=== PATIENT | male | born 1945 | race Caucasian/White ===

== ENCOUNTER 2022-02-09 11:47 | Outpatient (CLI) | payer MEDICARE ==
[2022-02-09] VITALS (7 sets, daily range): BP systolic 130–141; BP diastolic 86–105; PULSE 71–93; TEMP 96.9
[~2022-02-09] VITALS: Ht 185.4 cm; Wt 96.0 kg
[2022-02-09] MEDS ORDERED: LIPITOR 40MG TA40 MG PO (11:49)
[2022-02-09] MEDS ORDERED: ASPIRIN E.C. 8181 MG PO (11:49)
[2022-02-09] MEDS ORDERED: ZYLOPRIM 300MG300 MG PO (11:49)
[2022-02-09] MEDS ORDERED: DULCOLAX S10 MG/SUPP RC (11:50)
[2022-02-09] MEDS ORDERED: SINEMET 25/101 UDTAB PO (11:54)
[2022-02-09] MEDS ORDERED: DECADRON6 MG PO (11:55)
[2022-02-09] MEDS ORDERED: REFRESH TEARS 330 ML OP (11:55)
[2022-02-09] MEDS ORDERED: CELEXA 20MG20 MG/TAB PO (11:55)
[2022-02-09] MEDS ORDERED: NAMENDA XR PO (11:56)
[2022-02-09] MEDS ORDERED: PROSCAR 5MG5 MG PO (11:56)
[2022-02-09] MEDS ORDERED: MELATONIN3 M1 PO (11:56)
[2022-02-09] MEDS ORDERED: FLORINEF ACETA0.1 MG PO (11:56)
[2022-02-09] MEDS ORDERED: PROAMATINE 5MG T5 MG PO (11:57)
[2022-02-09] MEDS ORDERED: ZYPREXA 5MG5 MG PO (11:57)
[2022-02-09] MEDS ORDERED: MIRALAX PA17 GM/Dose PO (11:58)
[2022-02-09] MEDS ORDERED: ZOFRAN ODT4 MG PO (11:58)
[2022-02-09] MEDS ORDERED: PROTONIX 40MG T40 MG PO (11:58)
[2022-02-09] MEDS ORDERED: EXELON PAT4.6 MG/24 TD (11:59)
[2022-02-09] MEDS ORDERED: MIRAPEX0.25 MG PO (11:59)
[2022-02-09] MEDS ORDERED: SENNA-S 50 MG-81 TAB PO (12:00)
[2022-02-09] MEDS ORDERED: TYLENOL 325MG325 MG PO (12:00)
[2022-02-09] MEDS ORDERED: FLOMAX 0.40.4 MG/CAP PO (12:00)
--- NOTE | 2022-02-09 13:23 | NUR ---
Pt tolerated medication and 1 hr obs period with no issues. Pt was assisted to restroom and brief changed prior to departing. IV site wrapped with coban. He was assisted out to sister's car by wheelchair.
== END 2022-02-09 13:15 ==
LOC: EUO 11:47
DX: U07.1 COVID-19 (principal)
CPT/HCPCS: M0222; Q0222

== ENCOUNTER 2022-02-11 09:12 | Emergency (ER) | payer MEDICARE ==
[~2022-02-11 09:12] MED LIST: ASPIRIN E.C. 8181 MG PO; CELEXA 20MG20 MG/TAB PO; DECADRON6 MG PO; DULCOLAX S10 MG/SUPP RC; EXELON PAT4.6 MG/24 TD; FLOMAX 0.40.4 MG/CAP PO; FLORINEF ACETA0.1 MG PO; LIPITOR 40MG TA40 MG PO; MELATONIN3 M1 PO; MIRALAX PA17 GM/Dose PO; MIRAPEX0.25 MG PO; NAMENDA XR PO; PROAMATINE 5MG T5 MG PO; PROSCAR 5MG5 MG PO; PROTONIX 40MG T40 MG PO; REFRESH TEARS 330 ML OP; SENNA-S 50 MG-81 TAB PO; SINEMET 25/101 UDTAB PO; TYLENOL 325MG325 MG PO; ZOFRAN ODT4 MG PO; ZYLOPRIM 300MG300 MG PO; ZYPREXA 5MG5 MG PO
[2022-02-11 09:18] VITALS: TEMP 98.6
[2022-02-11 10:10] LABS: INR 1.2 (0.8-3.0)
[2022-02-11 10:11] LABS: BASO % 0.1 % (0.0-2.0); EOS % 0.2 % (0.0-4.0); GRAN # 5.8 K/mm3 (1.4-6.5); GRAN % 69.6 % (42.2-75.2); HEMOGLOBIN 11.5 g/dl (13.5-18.0); LYMPH # 1.8 K/mm3 (1.2-3.4); LYMPH % 21.4 % (20.0-51.0); MEAN CELL VOLUME 93 fl (80.0-100.0); MEAN CORPUSCULAR HEMOGLOBIN 31 pg (27-31); MEAN CORPUSCULAR HGB CONC 33 g/dl (33.0-37.0); MEAN PLATELET VOLUME 9.6 fl (7.4-10.4); MONO # 0.7 K/mm3 (0.1-0.6); MONO % 8.2 % (1.7-9.3); PLATELET COUNT 230 K/mm3 (130-400); RED BLOOD COUNT 3.75 M/mm3 (4.20-5.60)
[2022-02-11 10:15] LABS: ALBUMIN 3.1 gm/dL (3.4-4.8); BILIRUBIN,TOTAL 0.6 mg/dL (0.2-1.2); C-REACTIVE PROTEIN 0.1 mg/dL (0.00-0.50); CALCIUM 8.5 mg/dL (8.4-10.2); CREATININE, serum 0.83 mg/dL (0.72-1.25); HEMATOCRIT 34.7 % (42.0-52.0); POTASSIUM 3.4 mmol/L (3.5-4.5); TOTAL PROTEIN 6.2 gm/dL (6.2-8.1)
[2022-02-11 12:18] VITALS: BP 155/96; PULSE 70
== END 2022-02-11 12:50 | disposition home or self-care (01) ==
LOC: COL.ER 09:12
PROVIDERS: Family Medicine
DX: F03.90 Unspecified dementia, unspecified severity, without behavioral disturbance, psychotic disturbance, mood disturbance, and anxiety (principal); R41.82 Altered mental status, unspecified

== ENCOUNTER 2022-02-18 09:18 | Emergency (ER) | payer MEDICARE ==
[2022-02-18 09:19] VITALS: TEMP 97.1
[2022-02-18 09:55] LABS: BASO % 0.2 % (0.0-2.0); EOS # 0.1 K/mm3 (0.0-0.7); GRAN # 6.8 K/mm3 (1.4-6.5); GRAN % 65.2 % (42.2-75.2); HEMATOCRIT 36.4 % (42.0-52.0); HEMOGLOBIN 12.5 g/dl (13.5-18.0); LYMPH # 2.5 K/mm3 (1.2-3.4); LYMPH % 23.7 % (20.0-51.0); MEAN CELL VOLUME 91 fl (80.0-100.0); MEAN CORPUSCULAR HEMOGLOBIN 31 pg (27-31); MEAN CORPUSCULAR HGB CONC 34 g/dl (33.0-37.0); MEAN PLATELET VOLUME 9.1 fl (7.4-10.4); MONO # 0.9 K/mm3 (0.1-0.6); MONO % 8.6 % (1.7-9.3); PLATELET COUNT 207 K/mm3 (130-400); RED BLOOD COUNT 4.02 M/mm3 (4.20-5.60)
[2022-02-18 10:11] LABS: BILIRUBIN,TOTAL 0.7 mg/dL (0.2-1.2); C-REACTIVE PROTEIN 0.02 mg/dL (0.00-0.50); CALCIUM 8.7 mg/dL (8.4-10.2); CHLORIDE 105 mmol/L (98-107); POTASSIUM 3.4 mmol/L (3.5-4.5); SODIUM 142 mmol/L (136-145)
[2022-02-18 10:12] LABS: COLLECTION METHOD CLEAN CATCH
[2022-02-18 10:21] LABS: TROPONIN-I 0.016 ng/mL (0.00-0.033)
[2022-02-18 10:26] LABS: ALBUMIN 3.2 gm/dL (3.4-4.8); ALKALINE PHOSPHATASE 52 U/L (40-150); ANION GAP 11 mmol/L (7-16); AST,SGOT 6 U/L (5-34); BLOOD UREA NITROGEN 23 mg/dL (8-26); CARBON DIOXIDE 26 mmol/L (23-31); CREATININE, serum 0.84 mg/dL (0.72-1.25); GLUCOSE 79 mg/dL (70-99); TOTAL PROTEIN 5.9 gm/dL (6.2-8.1)
[2022-02-18 10:27] LABS: SQUAMOUS EPITHELIAL None Seen /hpf (0-10); URINE BACTERIA None Seen /hpf (NONE SEEN); URINE RBC None Seen /hpf (0-2)
[2022-02-18 10:32] LABS: URINE APPEARANCE Clear (CLEAR/HAZY); URINE COLOR Yellow (YELLOW)
[2022-02-18 10:33] LABS: PH 7.5 (5.0-8.5); URINE BLOOD Negative (NEGATIVE); URINE GLUCOSE Negative (NEGATIVE); URINE KETONE Negative (NEGATIVE); URINE NITRATE Negative (NEGATIVE); URINE PROTEIN(semi-quant) Negative (NEGATIVE)
[2022-02-18 10:33] LABS: ALANINE AMINOTRANSFERASE < 6 U/L (0-55)
[2022-02-18] MEDS ORDERED: PROAMATINE10 MG PO (11:29)
[2022-02-18 12:00] VITALS: BP 150/60; PULSE 80
== END 2022-02-18 12:00 | disposition home or self-care (01) ==
LOC: COL.ER 09:18
PROVIDERS: Family Medicine
DX: I95.1 Orthostatic hypotension (principal)
CPT/HCPCS: J7030

== ENCOUNTER 2022-03-22 14:05 | Emergency (ER) | payer MEDICARE ==
[~2022-03-22] VITALS: Ht 177.8 cm; Wt 81.8 kg
[~2022-03-22 14:05] MED LIST changes: +PROAMATINE10 MG PO
[2022-03-22 14:08] VITALS: TEMP 98
[2022-03-22 14:32] LABS: COLLECTION METHOD CLEAN CATCH
[2022-03-22 14:35] LABS: BASO % 0.3 % (0.0-2.0); EOS # 0.1 K/mm3 (0.0-0.7); EOS % 0.9 % (0.0-4.0); GRAN # 5.6 K/mm3 (1.4-6.5); GRAN % 73.8 % (42.2-75.2); HEMATOCRIT 37.7 % (42.0-52.0); LYMPH # 1.3 K/mm3 (1.2-3.4); LYMPH % 17.7 % (20.0-51.0); MEAN CELL VOLUME 89 fl (80.0-100.0); MEAN CORPUSCULAR HEMOGLOBIN 31 pg (27-31); MEAN CORPUSCULAR HGB CONC 35 g/dl (33.0-37.0); MEAN PLATELET VOLUME 9.5 fl (7.4-10.4); MONO # 0.5 K/mm3 (0.1-0.6); MONO % 6.9 % (1.7-9.3); PLATELET COUNT 193 K/mm3 (130-400); RED BLOOD COUNT 4.25 M/mm3 (4.20-5.60); REDCELL DISTRIBUTION WIDTH-CV 13.4 % (11.5-14.5)
[2022-03-22 14:44] LABS: URINE APPEARANCE Hazy (CLEAR/HAZY); URINE BLOOD Negative (NEGATIVE); URINE COLOR Yellow (YELLOW); URINE GLUCOSE Negative (NEGATIVE); URINE KETONE TRACE (NEGATIVE); URINE NITRATE Negative (NEGATIVE); URINE PROTEIN(semi-quant) Negative (NEGATIVE)
[2022-03-22 14:46] LABS: MUCOUS Present (NOT PRESENT); SQUAMOUS EPITHELIAL 0-2 /hpf (0-10); URINE BACTERIA Rare /hpf (NONE SEEN); URINE RBC 0-2 /hpf (0-2)
[2022-03-22 14:57] LABS: ALBUMIN 3.6 gm/dL (3.4-4.8); ALKALINE PHOSPHATASE 59 U/L (40-150); ANION GAP 10 mmol/L (7-16); AST,SGOT 7 U/L (5-34); BLOOD UREA NITROGEN 16 mg/dL (8-26); CALCIUM 9.2 mg/dL (8.4-10.2); CARBON DIOXIDE 23 mmol/L (23-31); CHLORIDE 108 mmol/L (98-107); CREATININE, serum 0.89 mg/dL (0.72-1.25); GLUCOSE 94 mg/dL (70-99); POTASSIUM 3.8 mmol/L (3.5-4.5); SODIUM 141 mmol/L (136-145); TOTAL PROTEIN 6.5 gm/dL (6.2-8.1)
[2022-03-22 14:59] LABS: ALANINE AMINOTRANSFERASE < 6 U/L (0-55)
[2022-03-22 17:00] VITALS: BP 124/87; PULSE 79
== END 2022-03-22 18:46 | disposition home or self-care (01) ==
LOC: COL.ER 14:05
PROVIDERS: Nurse Practitioner
DX: R53.1 Weakness (principal)